=== PATIENT | female | born 1995 | race African-American/Black ===

== ENCOUNTER 2016-07-26 09:00 | Emergency (ER) | payer MEDICAID ==
[~2016-07-26] VITALS: Ht 170.2 cm; Wt 90.0 kg
[~2016-07-26 09:00] MED LIST: DEPO400I IM; OSEL75 PO
[2016-07-26 09:01] VITALS: BP 120/77; PULSE 80; RESP 20; TEMP 99; O2SAT 98
--- NOTE | 2016-07-26 09:22 | PD ---
HPI Chief Complaint: Cold / Flu Symptoms Time Seen by Provider: 09:22 Travel History International Travel<30 days: No Contact w/Intl Traveler<30days: No Traveled to known affect area: No History of Present Illness HPI 20-year-old female presents to the emergency Department with complaint of nasal congestion, cough, sore throat, bilateral ear pain since yesterday. Denies fever, vomiting, abdominal pain. Denies lump in throat, difficulty swallowing, unusual drooling. Reports painful swallowing. Denies chest pain or shortness of breath. Denies body aches or headache. Has been drinking hot tea with minimal relief of symptoms. Has not taken any other medications or tried any other treatments to alleviate her symptoms. No known allergies. Has no other medical complaints. No other modifying factors or associated signs and symptoms. PFSH Past Medical History Autoimmune Disease: No Blood Disorders: No Anxiety: No Depression: No Cancer: No Cardiovascular Problems: Yes Diabetes: Yes (pt states borderline) Diminished Hearing: No Endocrine: Yes Gastrointestinal Disorders: Yes (GALLBLADDER "ISSUES") Genitourinary: No Hypertension: Yes (PI) Immune Disorder: No Implanted Vascular Access Dvce: No Musculoskeletal: No Neurologic: No Psychiatric: No Reproductive: No Respiratory: No Immunizations Current: Yes Pancreatitis: Yes Thyroid Disease: No ?: Not LMP: on depo BC : 3 Para: 2 Miscarriage: 0 : 0 Past Surgical History Cholecystectomy: Yes Other Surgery: No Social History Alcohol Use: No Tobacco Use: No Substance Use: No Allergies-Medications (Allergen,Severity, Reaction): Coded Allergies: No Known Allergies (Verified , 12/18/15) Reported Meds & Prescriptions Reported Meds & Active Scripts Active No Active Prescriptions or Reported Medications Review of Systems Except as stated in HPI: all other systems reviewed are Neg Physical Exam Narrative GENERAL: Well-nourished, well-developed female patient, in no acute distress SKIN: Warm and dry. No rash. HEAD: Atraumatic. Normocephalic. EYES: Pupils equal and round at 3 mm with brisk reaction. No scleral icterus. No injection or drainage. PERRLA. ENT: Mucosa pink and moist. Oropharynx with erythema; without exudate or edema. No uvular edema. No uvular, palatal, or tonsillar deviation. Airway patent. EARS: Bilateral pinnae and external canals appear within normal limits. Bilateral tympanic membranes without erythema, dullness or perforation. NECK: Trachea midline. No lymphadenopathy. CARDIOVASCULAR: Regular rate and rhythm. No murmur appreciated. RESPIRATORY: No accessory muscle use. Clear to auscultation. Breath sounds equal bilaterally. GASTROINTESTINAL: Abdomen soft, non-tender, nondistended. Hepatic and splenic margins not palpable. Bowel sounds are active 4 quadrants. MUSCULOSKELETAL: No obvious deformities. No clubbing. No cyanosis. No edema. NEUROLOGICAL: Awake and alert. Oriented 3. No obvious cranial nerve deficits. Motor grossly within normal limits. Normal speech. Moves all extremities. 5/5 strength to all extremities. PSYCHIATRIC: Appropriate mood and affect; insight and judgment normal. Data Data Last Documented VS Vital Signs Date Time Temp Pulse Resp B/P Pulse Ox O2 Delivery O2 Flow Rate FiO2 07/26/16 09:01 99.0 80 20 120/77 98 Room Air Orders Group A Rapid Strep Screen (07/26/16 09:22) Ibuprofen (Motrin) (07/26/16 09:30) Strep Culture (Group A) (07/26/16 09:24) MDM Medical Decision Making Medical Screen Exam Complete: Yes Emergency Medical Condition: Yes Medical Record Reviewed: Yes Differential Diagnosis Strep pharyngitis, viral pharyngitis, viral illness, less likely peritonsillar abscess Narrative Course 20-year-old female physical examination consistent with viral illness. She complaining of sore throat. Denies limp and throat, difficulty swallowing, and usual drooling. Denies fever, vomiting. Patient is afebrile and nontoxic- appearing. Ibuprofen ordered. Rapid strep ordered. 0953: Rapid strep negative. Discussed viral illness and symptom management. Nasonex nasal spray, ibuprofen, Magic mouthwash prescribed for home. Patient verbalizes understanding and agreement with treatment plan. Patient is medically cleared and stable for discharge. Discussed reasons to return to the emergency department. Instructed patient to follow up with primary care provider. Patient agrees with treatment plan. The patients vital signs are stable and the patient is stable for outpatient follow-up and treatment. Patient discharged home, stable and in no acute distress. Diagnosis Primary Impression: Viral illness Referrals: Primary Care Physician Patient Instructions: Cold Symptoms (ED), General Instructions, Safe Use of Cough and Cold Medicines (ED) Departure Forms: Tests/Procedures, Work Release Enter return to work date: July 28, 2016 Additional Instructions: Antibiotics as prescribed and complete full course Ibuprofen or Tylenol as instructed and as needed for fever/pain Yzhv-cre-cdydanr cough and cold medications as directed and as needed for symptom management Get plenty of sleep/rest Drink plenty of fluids to prevent dehydration; popsicles and Gatorade Use an air humidifier/turn off ceiling fans Follow-up with primary care provider Return immediately to the emergency department with worsening of symptoms Med/Other Pt SpecificInfo: Prescription(s) given Scripts Lonmhhsuzqssypa-Akmxpxhda-Voo-Alum-Simeth Liq (Magic Mouthwash Pediatric/Adult Liq)60 Ml Susp5 Ml SWISH-SWAL Q3HR PRN (SORE THROAT) #60 ML Ref 0 Each 5mL contains: Diphenydramine 4.5mg, Viscous Lidocaine 2% 10mg, Maalox Advanced Regular Strength 2.7ml Prov:Leona Willingham 07/26/16 Mometasone Nasal [place] (Nasonex Nasal [place])50 Mcg/Act Naspr2 [place] EACH NARE DAILY PRN (NASAL CONGESTION) #1 BOTTLE Ref 0 Prov:Leona Willingham 07/26/16 Ibuprofen 800 Mg Qdb571 Mg PO Q6HR PRN (PAIN) #30 TAB Ref 0 Prov:Leona Willingham 07/26/16 Disposition: 01 DISCHARGE HOME Condition: Stable Leona Willingham July 26, 2016 09:22
[2016-07-26] MEDS ORDERED: IBUPROFEN 800 MG TAB PO ONE (09:30)
[2016-07-26] MEDS ORDERED: MAGICPED SWISH-SWAL (09:55)
[2016-07-26] MEDS ORDERED: IBUP800T23 PO (09:55)
[2016-07-26] MEDS ORDERED: MOME17I EACH NARE (09:55)
[2016-07-26 10:30] VITALS: RESP 16
== END 2016-07-26 10:19 | disposition home or self-care (01) ==
LOC: NEPK 09:00
DX: B34.9 Viral infection, unspecified (principal)
CPT/HCPCS: 87081; 87880; 99283

== ENCOUNTER 2016-11-10 21:39 | Emergency (ER) | payer MEDICAID ==
[~2016-11-10 21:39] MED LIST changes: -DEPO400I IM; +IBUP800T23 PO; +MAGICPED SWISH-SWAL; +MOME17I EACH NARE; -OSEL75 PO
[2016-11-10 21:43] VITALS: BP 115/72; PULSE 85; RESP 16; TEMP 98.6; O2SAT 98
--- NOTE | 2016-11-10 22:28 | PD ---
Physical Exam Date Seen by Provider: Nov 10, 2016 Time Seen by Provider: 22:26 Data Data Last Documented VS Vital Signs Date Time Temp Pulse Resp B/P (MAP) Pulse Ox O2 Delivery O2 Flow Rate FiO2 11/10/16 21:43 98.6 85 16 115/72 (86) 98 MDM Supervised Visit with RINA: No Narrative Course 20 YO F with complaint of abdominal pain, diarrhea. Also complains of intermittent chest tightness and SOB since this AM. States similar symptoms before her gallbladder was removed. On Depo, states no period for years. Vitals reviewed. Patient seen in triage, awaiting bed placement. Corry Gar Nov 10, 2016 22:28
--- NOTE | 2016-11-10 23:58 | PD ---
HPI Chief Complaint: Abdominal Pain Time Seen by Provider: 23:58 Travel History International Travel<30 days: No Contact w/Intl Traveler<30days: No (20-year-old female) History of Present Illness HPI Patient is a 20-year-old female presents emergency department for evaluation of abdominal aching diarrhea nausea vomiting. Patient states been going on since the past 24 hours. She states that family member had very similar symptoms in the day. She discussed this with the grandmother thinks might be gastroenteritis. Denies vaginal bleeding vaginal discharge loss of fluid nonbilious nonbloody emesis and no melena nor bright red blood per rectum. No fevers. States symptoms are mild cramping but severe diarrhea. PFSH Past Medical History Autoimmune Disease: No Blood Disorders: No Anxiety: No Depression: No Cancer: No Cardiovascular Problems: Yes Diabetes: Yes (pt states borderline) Diminished Hearing: No Endocrine: Yes Gastrointestinal Disorders: Yes (GALLBLADDER "ISSUES") Genitourinary: No Hypertension: Yes (PIH) Immune Disorder: No Implanted Vascular Access Dvce: No Musculoskeletal: No Neurologic: No Psychiatric: No Reproductive: No Respiratory: No Immunizations Current: Yes Pancreatitis: Yes Thyroid Disease: No Tetanus Vaccination: < 5 Years ?: Not : 3 Para: 2 Miscarriage: 0 : 0 Past Surgical History Cholecystectomy: Yes Other Surgery: No Social History Alcohol Use: No Tobacco Use: No Substance Use: No Allergies-Medications (Allergen,Severity, Reaction): Coded Allergies: No Known Allergies (Verified , 12/18/15) Reported Meds & Prescriptions Reported Meds & Active Scripts Active Zofran Odt (Ondansetron Odt) 4 Mg Tab 4 Mg SL Q6HR PRN Flagyl (Metronidazole) 500 Mg Tab 500 Mg PO BID 7 Days Cipro (Ciprofloxacin HCl) 500 Mg Tab 500 Mg PO BID 7 Days Review of Systems Except as stated in HPI: all other systems reviewed are Neg Physical Exam Narrative GENERAL: Well-developed well-nourished no obvious distress, sitting comfortably studying a textbook. SKIN: Focused skin assessment warm/dry. HEAD: Atraumatic. Normocephalic. EYES: Pupils equal and round. No scleral icterus. No injection or drainage. ENT: No nasal bleeding or discharge. Mucous membranes pink and moist. NECK: Trachea midline. No JVD. CARDIOVASCULAR: Regular rate and rhythm. No murmur appreciated. RESPIRATORY: No accessory muscle use. Clear to auscultation. Breath sounds equal bilaterally. GASTROINTESTINAL: Abdomen soft, non-tender, nondistended. Hepatic and splenic margins not palpable. MUSCULOSKELETAL: No obvious deformities. No clubbing. No cyanosis. No edema. NEUROLOGICAL: Awake and alert. No obvious cranial nerve deficits. Motor grossly within normal limits. Normal speech. PSYCHIATRIC: Appropriate mood and affect; insight and judgment normal. Data Data Last Documented VS Vital Signs Date Time Temp Pulse Resp B/P (MAP) Pulse Ox O2 Delivery O2 Flow Rate FiO2 11/11/16 01:40 11/11/16 00:13 92 18 99 Room Air 11/10/16 21:43 98.6 Orders Orders Electrocardiogram (11/10/16 22:29) Complete Blood Count With Diff (11/11/16 00:00) Comprehensive Metabolic Panel (11/11/16 00:00) Prothrombin Time / Inr (Pt) (11/11/16 00:00) Act Partial Throm Time (Ptt) (11/11/16 00:00) Urinalysis - C+S If Indicated (11/11/16 00:00) Iv Access Insert/Monitor (11/11/16 00:00) Ecg Monitoring (11/11/16 00:00) Oximetry (11/11/16 00:00) Sodium Chlor 0.9% 1000 Ml Inj (Ns 1000 M (11/11/16 00:00) Sodium Chloride 0.9% Flush (Ns Flush) (11/11/16 00:00) Ketorolac Inj (Toradol Inj) (11/11/16 00:00) Ed Urine Pregnancytest Poc (11/11/16 00:00) Urine Culture (11/11/16 00:15) Labs Laboratory Tests Test 11/11/16 00:05 11/11/16 00:15 White Blood Count 10.2 TH/MM3 Red Blood Count 4.83 MIL/MM3 Hemoglobin 13.3 GM/DL Hematocrit 39.9 % Mean Corpuscular Volume 82.6 FL Mean Corpuscular Hemoglobin 27.5 PG Mean Corpuscular Hemoglobin Concent 33.3 % Red Cell Distribution Width 13.3 % Platelet Count 327 TH/MM3 Mean Platelet Volume 9.7 FL Neutrophils (%) (Auto) 59.0 % Lymphocytes (%) (Auto) 30.3 % Monocytes (%) (Auto) 7.6 % Eosinophils (%) (Auto) 2.6 % Basophils (%) (Auto) 0.5 % Neutrophils # (Auto) 6.0 TH/MM3 Lymphocytes # (Auto) 3.1 TH/MM3 Monocytes # (Auto) 0.8 TH/MM3 Eosinophils # (Auto) 0.3 TH/MM3 Basophils # (Auto) 0.0 TH/MM3 CBC Comment DIFF FINAL Differential Comment Prothrombin Time 11.6 SEC Prothromb Time International Ratio 1.0 RATIO Activated Partial Thromboplast Time 29.2 SEC Blood Urea Nitrogen 12 MG/DL Creatinine 0.81 MG/DL Random Glucose 82 MG/DL Total Protein 8.5 GM/DL Albumin 3.8 GM/DL Calcium Level 9.2 MG/DL Alkaline Phosphatase 92 U/L Aspartate Amino Transf (AST/SGOT) 27 U/L Alanine Aminotransferase (ALT/SGPT) 22 U/L Total Bilirubin 0.4 MG/DL Sodium Level 140 MEQ/L Potassium Level 4.0 MEQ/L Chloride Level 107 MEQ/L Carbon Dioxide Level 25.2 MEQ/L Anion Gap 8 MEQ/L Estimat Glomerular Filtration Rate 107 ML/MIN Urine Color YELLOW Urine Turbidity HAZY Urine pH 6.0 Urine Specific Hugo 1.030 Urine Protein 30 mg/dL Urine Glucose (UA) NEG mg/dL Urine Ketones NEG mg/dL Urine Occult Blood NEG Urine Nitrite NEG Urine Bilirubin NEG Urine Urobilinogen LESS THAN 2.0 MG/DL Urine Leukocyte Esterase LARGE Urine RBC 4 /hpf Urine WBC 9 /hpf Urine Squamous Epithelial Cells 6 /hpf Urine Hyaline Casts 2 /lpf Urine Mucus MANY /lpf Microscopic Urinalysis Comment CULTURE INDICATED MDM Medical Decision Making Medical Screen Exam Complete: Yes Emergency Medical Condition: Yes Differential Diagnosis Gastritis, gastroenteritis, acute abdomen unlikely, pancreatitis, cholecystitis , , electrolyte abnormality. Narrative Course Patient roomed emergency department, labs are reassuring except for UA which does show some evidence for urinary tract infection. Patient appears comfortable. Will be placed on empiric antibiotics discussed need for follow- up the primary care physician and discussed return to ED criteria. Stable for discharge. Diagnosis Primary Impression: Gastroenteritis Additional Impression: UTI (urinary tract infection) Departure Forms: Tests/Procedures, Work Release Enter return to work date: Nov 12, 2016 Special Instructions: Please excuse on 11/09 and 11/10 as well. Med/Other Pt SpecificInfo: Prescription(s) given Scripts Ondansetron Odt (Zofran Odt) 4 Mg Tab 4 MG SL Q6HR Y for Nausea/Vomiting, #30 TAB 0 Refills Prov: Farhat Burton MD 11/11/16 Metronidazole (Flagyl) 500 Mg Tab 500 MG PO BID for Infection for 7 Days, TAB 0 Refills Prov: Farhat Burton MD 11/11/16 Ciprofloxacin (Cipro) 500 Mg Tab 500 MG PO BID for Infection for 7 Days, TAB 0 Refills Prov: Farhat Burton MD 11/11/16 Disposition: 01 DISCHARGE HOME Condition: Stable Farhat Burton MD Nov 10, 2016 23:58
[2016-11-11] MEDS ORDERED: SODIUM CHLOR 0.9% 1000 ML INJ 1,000 ML IV SCH
[2016-11-11] MEDS ORDERED: SODIUM CHLORIDE 0.9% FLUSH 10 ML FLUSH IV FLUSH PRN
[2016-11-11] MEDS ORDERED: KETOROLAC TROMETHAMINE 30 MG/ML (IVP) VIAL IVP ONE
[2016-11-11 00:13] VITALS: BP 126/76; PULSE 92; RESP 18; O2SAT 99
[2016-11-11 00:31] LABS: BASOPHIL % 0.5 % (0.0-2.0); EOSINOPHIL # 0.3 TH/MM3 (0-0.4); EOSINOPHIL % 2.6 % (0.0-4.0); HEMATOCRIT 39.9 % (35.0-46.0); HEMO FLAGS DIFF FINAL; LYMPH % 30.3 % (9.0-44.0); LYMPHOCYTE # 3.1 TH/MM3 (1.0-4.8); MEAN CELL VOLUME 82.6 FL (80.0-100.0); MEAN CORPUSCULAR HEMOGLOBIN 27.5 PG (27.0-34.0); MEAN CORPUSCULAR HGB CONC 33.3 % (32.0-36.0); MONO % 7.6 % (0.0-8.0); PLATELET COUNT 327 TH/MM3 (150-450); RED BLOOD COUNT 4.83 MIL/MM3 (4.00-5.30); RED CELL DISTRIBUTION WIDTH 13.3 % (11.6-17.2); WHITE BLOOD COUNT 10.2 TH/MM3 (4.0-11.0)
[2016-11-11 00:37] LABS: BLOOD, URINE NEG (NEG); COMMENT (UR) CULTURE INDICATED; CULTURE IF INDICATED CULTURE INDICATED; GLUCOSE,URINE NEG (NEG); HYALINE CAST, URINE 2 /lpf (RARE); KETONE, URINE NEG (NEG); MUCUS URINE MANY /lpf (OCC); NITRITE,URINE NEG (NEG); SQUAMOUS EPITHELIAL CELL URINE 6 /hpf (0-5); URINE COLOR YELLOW (YELLW/STRAW)
[2016-11-11 00:45] LABS: APTT (PATIENT) 29.2 SEC (24.3-30.1); PROTHROMBIN TIME - PATIENT 11.6 SEC (9.8-11.6)
[2016-11-11 00:51] LABS: ALKALINE PHOSPHATASE 92 U/L (45-117); TOTAL BILIRUBIN ADULT 0.4 MG/DL (0.2-1.0)
[2016-11-11 00:52] LABS: ALT (GPT) 22 U/L (10-53); ANION GAP 8 MEQ/L (5-15); AST (GOT) 27 U/L (15-37); BICARBONATE 25.2 MEQ/L (21.0-32.0); BLOOD UREA NITROGEN 12 MG/DL (7-18); CHLORIDE 107 MEQ/L (98-107); GLOMERULAR FILTRATION RATE 107 ML/MIN (>89); SODIUM (NA) 140 MEQ/L (136-145)
[2016-11-11] MEDS ORDERED: ZOFR4TAB3 SL (00:58)
[2016-11-11] MEDS ORDERED: METR-1 PO (00:58)
[2016-11-11] MEDS ORDERED: CIPR-9 PO (00:58)
--- NOTE | 2016-11-11 19:43 | EKG ---
Date Performed: 11/10/2016 Time Performed: 22:36:05 PTAGE: 20 years EKG: Sinus rhythm WITH SINUS ARRHYTHMIA POSSIBLE RIGHT VENTRICULAR CONDUCTION DELAY BORDERLINE ECG PREVIOUS TRACING : 12/18/2015 04.46 Compared to prior tracing no significant change DOCTOR: Nanci Woodard Interpretating Date/Time 11/11/2016 19:42:06
== END 2016-11-11 01:46 | disposition home or self-care (01) ==
LOC: NEPD 21:39
DX: K52.9 Noninfective gastroenteritis and colitis, unspecified (principal); N39.0 Urinary tract infection, site not specified; R07.9 Chest pain, unspecified
CPT/HCPCS: 80053; 81001; 84703; 85025; 85610; 85730; 87086; 93005; 96361; 96374; 99284; J1885; J7030

== ENCOUNTER 2016-11-16 11:51 | Emergency (ER) | payer MEDICAID ==
[~2016-11-16 11:51] MED LIST changes: +CIPR-9 PO; -IBUP800T23 PO; -MAGICPED SWISH-SWAL; +METR-1 PO; -MOME17I EACH NARE; +ZOFR4TAB3 SL
[2016-11-16 11:54] VITALS: BP 141/83; PULSE 78; RESP 15; TEMP 98.8; O2SAT 98
--- NOTE | 2016-11-16 12:14 | PD ---
HPI . generalized stomach pain Chief Complaint: GI Complaint Time Seen by Provider: 12:12 Travel History International Travel<30 days: No Contact w/Intl Traveler<30days: No Traveled to known affect area: No History of Present Illness HPI 20- year old female complaining of RUQ abdominal pain with nausea, vomiting, and diarrhea. The patient reports that she was seen a few days ago and was given Cipro and Flagyl to treat gastroenteritis and Zofran for her nausea. She reports despite taking all of the medications she has not gotten any better. She reports that she is having RUQ abdominal pain. She also reports feeling weak and dizzy. She states she is unable to keep any liquids down. She reports about two years ago she had a cholecystectomy. She denies any vaginal discharge or any chance of . PFSH Past Medical History Autoimmune Disease: No Blood Disorders: No Anxiety: No Depression: No Cancer: No Cardiovascular Problems: Yes Diabetes: Yes (pt states borderline) Diminished Hearing: No Endocrine: Yes Gastrointestinal Disorders: Yes (GALLBLADDER "ISSUES") Genitourinary: No Hypertension: Yes (PIH) Immune Disorder: No Implanted Vascular Access Dvce: No Musculoskeletal: No Neurologic: No Psychiatric: No Reproductive: No Respiratory: No Immunizations Current: Yes Pancreatitis: Yes Thyroid Disease: No : 3 Para: 2 Miscarriage: 0 : 0 Past Surgical History Cholecystectomy: Yes Other Surgery: No Social History Alcohol Use: No Tobacco Use: No Substance Use: No Allergies-Medications (Allergen,Severity, Reaction): Coded Allergies: No Known Allergies (Verified , 12/18/15) Reported Meds & Prescriptions Reported Meds & Active Scripts Active Zofran Odt (Ondansetron Odt) 4 Mg Tab 4 Mg SL Q6HR PRN Flagyl (Metronidazole) 500 Mg Tab 500 Mg PO BID 7 Days Cipro (Ciprofloxacin HCl) 500 Mg Tab 500 Mg PO BID 7 Days Review of Systems General / Constitutional: No: Fever, Chills, Weight Gain, Weight Loss, Other Eyes: No: Diploplia, Blurred Vision, Photophobia, Drainage, Redness, Foreign Body Sensation, Pain, Tearing, Blind Spots, Visual changes, Blindness, Other HENT: No: Headaches, Vertigo, Lightheadedness, Sore Throat, Rhinitis, Rhinorrhea, Congestion, Nosebleed, Neck Stiffness, Neck Pain, Masses, Gingival Bleeding, Dental Difficulties, Ear Discharge, Earache, Other Cardiovascular: No: Chest Pain or Discomfort, Palpitations, Irregular Rhythm, Tachycardia, Diaphoresis, Syncope, Dyspnea on exertion, Varicosities, Edema, Cyanosis, Varicosities, Phlebitis, Claudication, Other Respiratory: No: Cough, Shortness of Breath, Wheezing, Sneezing, Orthopnea, Hemoptysis, Stridor, Night Sweats, Pleuritic Pain, Other Gastrointestinal: Positive: Nausea, Vomiting, Diarrhea, Abdominal Pain (RUQ), No: Hematemesis, Hematochezia, Constipation, Changes in Bowel Habits, Indigestion, Dysphagia, Loss of Appetite, Other Genitourinary: Positive: Flank Pain (right sided ), No: Urgency, Frequency, Dysuria, Nocturia, Hematuria, Decreased Urinary Output, Oliguria, Hesitancy, Dribbling, Incontinence, Pelvic Pain, Dyspareunia, Discharge, Dysmenorrhea, Menorrhagia, Metorrhagia, Vaginal Bleeding, Other Musculoskeletal: No: Myalgias, Arthralgias, Limited ROM, Weakness, Cramping, Edema, Pain, Atrophy, Other Skin: No Rash, No Itching, No Dryness, No Lumps, No Hives, No Change in Pigmentation, No Change in nails, No Alopecia, No Lesions, No Breast Lumps, No Breast Tenderness, No Breast Swelling, No Other Neurologic: Positive: Weakness, Dizziness, No: Syncope, Focal Abnormalities, Coordination Problem, Tremor, Ataxia, Headache, Change in Mentation, Slurred Speech, Paresthesia, Incontinence, Seizures, Sensory Disturbance, Other Psychiatric: No: Anxiety, Depression, Suicidal Ideations, Disorder of Thought, Mood Disorder, Substance Abuse, Homicidal Ideation, Other Endocrine: No: Heat Intolerance, Cold Intolerance, Polyuria, Polydipsia, Other Hematologic/Lymphatic: No: Easy Bruising, Lymph Node Enlargement, Other Physical Exam Narrative GENERAL: AAO x 3. NAD, comfortable in exam room SKIN: Warm and dry. HEAD: Atraumatic. Normocephalic. EYES: Pupils equal and round. No scleral icterus. No injection or drainage. ENT: No nasal bleeding or discharge. Mucous membranes pink and moist. NECK: Trachea midline. No JVD. CARDIOVASCULAR: Regular rate and rhythm. No S3, S4, or murmurs. RESPIRATORY: No accessory muscle use. Clear to auscultation. Breath sounds equal bilaterally. No rales, rhonchi, or wheezing. GASTROINTESTINAL: Abdomen soft, non-tender, nondistended. No CVA tenderness. no rebound or guarding. negative Stahl's sign and McBurney's point tenderness MUSCULOSKELETAL: Extremities without clubbing, cyanosis, or edema. No obvious deformities. NEUROLOGICAL: Awake and alert. No obvious cranial nerve deficits. Motor grossly within normal limits. Five out of 5 muscle strength in the arms and legs. Normal speech. PSYCHIATRIC: Appropriate mood and affect; insight and judgment normal. Data Data Last Documented VS Vital Signs Date Time Temp Pulse Resp B/P (MAP) Pulse Ox O2 Delivery O2 Flow Rate FiO2 11/16/16 13:18 18 11/16/16 11:54 98.8 78 141/83 (102) 98 Orders Orders Complete Blood Count With Diff (11/16/16 12:20) Basic Metabolic Panel (Bmp) (11/16/16 12:20) Ed Urine Pregnancytest Poc (11/16/16 12:56) Labs Laboratory Tests Test 11/16/16 12:48 White Blood Count 8.3 TH/MM3 Red Blood Count 4.17 MIL/MM3 Hemoglobin 11.2 GM/DL Hematocrit 34.5 % Mean Corpuscular Volume 82.7 FL Mean Corpuscular Hemoglobin 26.9 PG Mean Corpuscular Hemoglobin Concent 32.6 % Red Cell Distribution Width 13.6 % Platelet Count 332 TH/MM3 Mean Platelet Volume 8.8 FL Neutrophils (%) (Auto) 61.2 % Lymphocytes (%) (Auto) 28.8 % Monocytes (%) (Auto) 5.6 % Eosinophils (%) (Auto) 3.7 % Basophils (%) (Auto) 0.7 % Neutrophils # (Auto) 5.1 TH/MM3 Lymphocytes # (Auto) 2.4 TH/MM3 Monocytes # (Auto) 0.5 TH/MM3 Eosinophils # (Auto) 0.3 TH/MM3 Basophils # (Auto) 0.1 TH/MM3 CBC Comment DIFF FINAL Differential Comment Blood Urea Nitrogen 11 MG/DL Creatinine 0.68 MG/DL Random Glucose 82 MG/DL Calcium Level 8.6 MG/DL Sodium Level 141 MEQ/L Potassium Level 4.0 MEQ/L Chloride Level 110 MEQ/L Carbon Dioxide Level 25.6 MEQ/L Anion Gap 5 MEQ/L Estimat Glomerular Filtration Rate 131 ML/MIN MDM Medical Decision Making Medical Screen Exam Complete: Yes Emergency Medical Condition: Yes Medical Record Reviewed: Yes Differential Diagnosis Gastroenteritis, Intractable vomiting, Pancreatitis Narrative Course 20- year old female seen in the ED for abdominal pain, nausea, vomiting, and diarrhea. The patient was seen recently in the ED and was prescribed Cipro and Flagyl. The patient reports that the symptoms have not yet resolved. Examination was unremarkable. Her abdominal exam is benign. I do not believe imaging is indicated and there is no tenderness throughout her entire abdomen. Labs completed were unremarkable. Laboratory Tests Test 11/16/16 12:48 White Blood Count 8.3 TH/MM3 Red Blood Count 4.17 MIL/MM3 Hemoglobin 11.2 GM/DL Hematocrit 34.5 % Mean Corpuscular Volume 82.7 FL Mean Corpuscular Hemoglobin 26.9 PG Mean Corpuscular Hemoglobin Concent 32.6 % Red Cell Distribution Width 13.6 % Platelet Count 332 TH/MM3 Mean Platelet Volume 8.8 FL Neutrophils (%) (Auto) 61.2 % Lymphocytes (%) (Auto) 28.8 % Monocytes (%) (Auto) 5.6 % Eosinophils (%) (Auto) 3.7 % Basophils (%) (Auto) 0.7 % Neutrophils # (Auto) 5.1 TH/MM3 Lymphocytes # (Auto) 2.4 TH/MM3 Monocytes # (Auto) 0.5 TH/MM3 Eosinophils # (Auto) 0.3 TH/MM3 Basophils # (Auto) 0.1 TH/MM3 CBC Comment DIFF FINAL Differential Comment Blood Urea Nitrogen 11 MG/DL Creatinine 0.68 MG/DL Random Glucose 82 MG/DL Calcium Level 8.6 MG/DL Sodium Level 141 MEQ/L Potassium Level 4.0 MEQ/L Chloride Level 110 MEQ/L Carbon Dioxide Level 25.6 MEQ/L Anion Gap 5 MEQ/L Estimat Glomerular Filtration Rate 131 ML/MIN Patient was told to follow up with her primary care provider with any further concerns. The patient's test was negative. The patient is requesting work excuse note for today. I advised her to f/u with PCP and consider outpt GI appt. Diagnosis Primary Impression: Abdominal discomfort Patient Instructions: General Instructions Departure Forms: Tests/Procedures, Work Release Enter return to work date: Nov 17, 2016 Additional Instructions: Please return to emergency department if your symptoms return or worsen. Follow up with your primary care provider. Take medications as prescribed. Med/Other Pt SpecificInfo: No Change to Meds Disposition: 01 DISCHARGE HOME Condition: Stable Aura Ferro Nov 16, 2016 12:14
[2016-11-16 13:02] LABS: AUTOMATED NEUTROPHIL # 5.1 TH/MM3 (1.8-7.7); BASOPHIL # 0.1 TH/MM3 (0-0.2); BASOPHIL % 0.7 % (0.0-2.0); EOSINOPHIL # 0.3 TH/MM3 (0-0.4); EOSINOPHIL % 3.7 % (0.0-4.0); HEMATOCRIT 34.5 % (35.0-46.0); HEMO FLAGS DIFF FINAL; LYMPH % 28.8 % (9.0-44.0); LYMPHOCYTE # 2.4 TH/MM3 (1.0-4.8); MEAN CELL VOLUME 82.7 FL (80.0-100.0); MEAN CORPUSCULAR HEMOGLOBIN 26.9 PG (27.0-34.0); MEAN CORPUSCULAR HGB CONC 32.6 % (32.0-36.0); MONO % 5.6 % (0.0-8.0); NEUT % 61.2 % (16.0-70.0); PLATELET COUNT 332 TH/MM3 (150-450); RED BLOOD COUNT 4.17 MIL/MM3 (4.00-5.30); RED CELL DISTRIBUTION WIDTH 13.6 % (11.6-17.2); WHITE BLOOD COUNT 8.3 TH/MM3 (4.0-11.0)
[2016-11-16 13:26] LABS: BICARBONATE 25.6 MEQ/L (21.0-32.0)
== END 2016-11-16 13:56 | disposition home or self-care (01) ==
LOC: NEPD 11:51
DX: R10.11 Right upper quadrant pain (principal); R53.1 Weakness; R42 Dizziness and giddiness
CPT/HCPCS: 80048; 84703; 85025; 99283

== ENCOUNTER 2017-01-01 20:04 | Emergency (ER) | payer MEDICAID ==
[~2017-01-01] VITALS: Ht 170.2 cm; Wt 88.0 kg
[2017-01-01 20:12] VITALS: BP 132/65; PULSE 109; RESP 18; O2SAT 96
[2017-01-01] MEDS ORDERED: PENI500T PO (20:52)
[2017-01-01] MEDS ORDERED: MAGICADU2 SWISH-SWAL (20:52)
[2017-01-01] MEDS ORDERED: PENICILLIN G PROCAINE INJ 1,200,000 UNITS/2 ML SYR IM ONE (21:00)
[2017-01-01] MEDS ORDERED: DEXAMETHASONE SOD PHOS 20 MG/5 ML VIAL IM ONE (21:00)
--- NOTE | 2017-01-01 21:14 | PD ---
HPI Chief Complaint: ENT Complaint Time Seen by Provider: 20:49 Travel History International Travel<30 days: No Contact w/Intl Traveler<30days: No Traveled to known affect area: No History of Present Illness HPI 21-year-old black female presents emergency Department with a 24-hour history of sore throat and ear pain. She states that she was in her normal state of health yesterday. Today she developed some subjective fever, ear pain, sore throat, and general malaise. She states that she had difficulty swallowing but was able to handle her secretions. No shortness of breath or wheezing. No nausea vomiting. No abdominal pain or diarrhea. No dysuria or frequency. PFSH Past Medical History Autoimmune Disease: No Blood Disorders: No Anxiety: No Depression: No Cancer: No Cardiovascular Problems: Yes Diabetes: Yes (pt states borderline) Diminished Hearing: No Endocrine: Yes Gastrointestinal Disorders: Yes (GALLBLADDER "ISSUES") Genitourinary: No Immune Disorder: No Implanted Vascular Access Dvce: No Musculoskeletal: No Neurologic: No Psychiatric: No Reproductive: No Respiratory: No Immunizations Current: Yes Pancreatitis: Yes Thyroid Disease: No Tetanus Vaccination: < 5 Years Influenza Vaccination: No ?: Not LMP: depo injection : 3 Para: 2 Miscarriage: 0 : 0 Past Surgical History Cholecystectomy: Yes Other Surgery: No Social History Alcohol Use: No Tobacco Use: No Substance Use: No Allergies-Medications (Allergen,Severity, Reaction): Coded Allergies: No Known Allergies (Verified , 12/18/15) Reported Meds & Prescriptions Reported Meds & Active Scripts Active Penicillin V Potassium 500 Mg Tab 500 Mg PO Q12HR 10 Days Magic Mouthwash Adult Liq (Multi-Ingredient Mouthwash/Gargle) 120 Ml Susp 5 Ml SWISH-SWAL ACHS Each 5mL contains: Nystatin 200,000units, Diphenhydramine 4.25mg, Viscous Lidocaine 10mg, Frye syrup 0.8 mL Review of Systems Except as stated in HPI: all other systems reviewed are Neg Physical Exam Narrative GENERAL: Well-developed, well-nourished in no acute distress. Nontoxic appearing. HEAD: Normocephalic, atraumatic. EYES: Pupils equal round and reactive. Extraocular motions intact. No scleral icterus. No injection or drainage. ENT: TMs clear without erythema. The external auditory canals clear. Nose: clear . Posterior pharynx is erythematous and moist. Positive tonsillar edema with white exudate. Tonsils are edematous but are not kissing. There is no swelling of the soft palate or peritonsillar area consistent with a abscess. Uvula midline. Airway patent. Patient handling her secretions well. NECK: Trachea midline.Supple, nontender, moves head freely. No central bony tenderness or spasm. CARDIOVASCULAR: Regular rate and rhythm without murmurs, gallops, or rubs. RESPIRATORY: Clear to auscultation. Breath sounds equal bilaterally. No wheezes , rales, or rhonchi. GASTROINTESTINAL: Abdomen soft, non-tender, nondistended. No hepato-splenomegaly , or palpable masses. No guarding. EXTREMITIES: No clubbing, cyanosis, or edema. No joint tenderness, effusion, or edema noted. BACK: Nontender without deformity or crepitance. No flank tenderness. Data Data Last Documented VS Vital Signs Date Time Temp Pulse Resp B/P (MAP) Pulse Ox O2 Delivery O2 Flow Rate FiO2 01/01/17 20:12 109 18 132/65 (87) 96 Orders Orders Dexamethasone Inj (Decadron Inj) (01/01/17 21:00) Penicillin G Procaine Inj (Wycillin Inj) (01/01/17 21:00) Ed Discharge Order (01/01/17 21:08) MDM Medical Decision Making Medical Screen Exam Complete: Yes Emergency Medical Condition: Yes Medical Record Reviewed: Yes Differential Diagnosis MDM: High Differential diagnoses: Strep throat, viral pharyngitis, mono, peritonsillar abscess, retropharyngeal abscess, Gene's angina Narrative Course Patient's given Decadron 10 mg IM and pen G1 0.2 million units IM. This is acute pharyngitis Diagnosis Primary Impression: Acute bacterial pharyngitis Patient Instructions: General Instructions Additional Instructions: Rest. Force fluids. Saltwater gargles. Tylenol and Advil. Chloraseptic [place] Cepastat lozenge. Pen-Vee K and Magic mouthwash. Follow-up with a primary care doctor 2- 3 days.. Return to the ER if any problems. Med/Other Pt SpecificInfo: Prescription(s) given Scripts Penicillin V Potassium (Penicillin V Potassium) 500 Mg Tab 500 MG PO Q12HR for Infection for 10 Days, TAB 0 Refills Prov: Alysha Valdez MD 01/01/17 Hkvoxife-Yrzzazsvjrbrxre-Awsmghhgc Liq (Magic Mouthwash Adult Liq) 120 Ml Susp 5 ML SWISH-SWAL ACHS for Mouth sores, #120 ML 0 Refills Each 5mL contains: Nystatin 200,000units, Diphenhydramine 4.25mg, Viscous Lidocaine 10mg, Frye syrup 0.8 mL Prov: Alysha Valdez MD 01/01/17 Disposition: 01 DISCHARGE HOME Condition: Stable Wilfredo Connolly Jan 01, 2017 21:14
[2017-01-01 21:25] VITALS: TEMP 100.6
[2017-01-01] MEDS ORDERED: ACETAMINOPHEN 500 MG CPLT PO ONE (21:45)
[2017-01-01] MEDS ORDERED: PENICILLIN G BENZATHINE 1,200,000 UNITS/2 ML SYRINGE IM ONE (21:45)
== END 2017-01-01 22:54 | disposition home or self-care (01) ==
LOC: NEPD 20:04
DX: J02.9 Acute pharyngitis, unspecified (principal)
CPT/HCPCS: 96372; 99284; J0561; J1100

== ENCOUNTER 2017-02-18 20:38 | Emergency (ER) | payer MEDICAID ==
[~2017-02-18 20:38] MED LIST changes: -CIPR-9 PO; +MAGICADU2 SWISH-SWAL; -METR-1 PO; +PENI500T PO; -ZOFR4TAB3 SL
[2017-02-18 20:43] VITALS: BP 113/59; PULSE 85; RESP 16; TEMP 98.6; O2SAT 100
== END 2017-02-18 21:10 | disposition left against medical advice (07) ==
LOC: NED 20:38
DX: Z53.21 Procedure and treatment not carried out due to patient leaving prior to being seen by health care provider (principal)
CPT/HCPCS: 99281

== ENCOUNTER 2017-02-18 21:38 | Emergency (ER) | payer MEDICAID ==
[2017-02-18 21:40] VITALS: BP 128/68; PULSE 88; RESP 18; TEMP 97.9; O2SAT 99
== END 2017-02-18 23:47 | disposition left against medical advice (07) ==
LOC: NED 21:38
DX: Z53.21 Procedure and treatment not carried out due to patient leaving prior to being seen by health care provider (principal)
CPT/HCPCS: 99281

== ENCOUNTER 2017-03-09 18:46 | Emergency (ER) | payer MEDICAID ==
[2017-03-09 18:48] VITALS: BP 122/80; PULSE 61; RESP 16; TEMP 98.6; O2SAT 100
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
[2017-03-09] MEDS ORDERED: AZITHROMYCIN PWD FOR SUSP 1 GM PACKET PO ONE (19:45)
[2017-03-09] MEDS ORDERED: cefTRIAXone 250 MG VIAL IM ONE (19:45)
[2017-03-09 21:22] LABS: BILIRUBIN, URINE NEG (NEG); BLOOD, URINE NEG (NEG); GLUCOSE,URINE NEG (NEG); KETONE, URINE NEG (NEG); MUCUS URINE FEW /lpf (OCC); NITRITE,URINE NEG (NEG); SQUAMOUS EPITHELIAL CELL URINE 1 /hpf (0-5); URINE COLOR YELLOW (YELLW/STRAW); URINE LEUKOCYTE ESTERASE NEG (NEG)
[2017-03-09] MEDS ORDERED: METR0.7528 VAGINAL (21:30)
[2017-03-09 21:34] LABS: BICARBONATE 23.2 MEQ/L (21.0-32.0); CALCIUM 9.2 MG/DL (8.5-10.1); CREATININE 0.62 MG/DL (0.50-1.00)
[2017-03-09 22:41] LABS: AUTOMATED NEUTROPHIL # 9.2 TH/MM3 (1.8-7.7); BASOPHIL # 0.1 TH/MM3 (0-0.2); BASOPHIL % 0.5 % (0.0-2.0); EOSINOPHIL # 0.2 TH/MM3 (0-0.4); EOSINOPHIL % 1.5 % (0.0-4.0); HEMATOCRIT 35.4 % (35.0-46.0); HEMOGLOBIN 11.6 GM/DL (11.6-15.3); LYMPH % 23.5 % (9.0-44.0); LYMPHOCYTE # 3.2 TH/MM3 (1.0-4.8); MEAN CELL VOLUME 81.8 FL (80.0-100.0); MEAN CORPUSCULAR HEMOGLOBIN 26.8 PG (27.0-34.0); MEAN CORPUSCULAR HGB CONC 32.8 % (32.0-36.0); MONO % 5.8 % (0.0-8.0); MONOCYTE # 0.8 TH/MM3 (0-0.9); NEUT % 68.7 % (16.0-70.0); PLATELET COUNT 348 TH/MM3 (150-450); RED BLOOD COUNT 4.33 MIL/MM3 (4.00-5.30); RED CELL DISTRIBUTION WIDTH 13.2 % (11.6-17.2); WHITE BLOOD COUNT 13.4 TH/MM3 (4.0-11.0)
--- NOTE | 2017-03-09 22:52 | RADRPT ---
EXAM DATE/TIME: 03/09/2017 22:06 [place] COMPARISON: US PELVIS (QUEST PREG/ECTOPIC), January 24, 2015, 10:56. INDICATIONS : Bleeding with . LAB(S): Beta-hC MEDICAL HISTORY : . Pancreatitis. Hypertension. Borderline diabetic. SURGICAL HISTORY : Cholecystectomy. ENCOUNTER: Initial ACUITY: 1 day PAIN SCORE: 0/10 LOCATION: Bilateral pelvis MEASUREMENTS: UTERUS: 13.0 x 8.1 x 5.8 cm ENDOMETRIAL STRIPE: >20 mm RIGHT OVARY: 3.5 x 2.6 x 1.8 cm LEFT OVARY: 2.8 x 2.1 x 1.4 cm FREE FLUID: No CROWN RUMP LENGTH: 2.4 cm = 9 WKS 1 DAYS FHR: 176 BPM FINDINGS: Intrauterine with pole measuring 2.4 cm and with a small yolk sac. heart rate of 176 beats per minute is documented with Doppler. Low level echo intensity 2.1 x 1.8 cm in the rig ht ovary probably represents corpus luteum. No evidence of free fluid. CONCLUSION: Viable intrauterine dated at 9 weeks one day. Adam Verdugo MD on March 09, 2017 at 22:48 Board Certified Radiologist. This report was verified electronically.
[2017-03-09 23:30] VITALS: BP_SYST 114; BP_DIAS 61; BP_DIAS 65
== END 2017-03-09 23:31 | disposition home or self-care (01) ==
LOC: NEPD 18:46
DX: O23.591 Infection of other part of genital tract in pregnancy, first trimester (principal); B96.89 Other specified bacterial agents as the cause of diseases classified elsewhere; Z3A.08 8 weeks gestation of pregnancy
CPT/HCPCS: 76700; 80048; 81001; 84702; 85025; 87210; 87491; 87591; 96372; 99285; J0696

== ENCOUNTER 2017-04-21 08:43 | Emergency (ER) | payer MEDICAID ==
[~2017-04-21] VITALS: Ht 170.2 cm; Wt 88.0 kg
[~2017-04-21 08:43] MED LIST changes: +METR0.7528 VAGINAL
[2017-04-21 08:44] VITALS: BP 109/69; PULSE 76; RESP 16; TEMP 98.6; O2SAT 100
--- NOTE | 2017-04-21 09:21 | PD ---
HPI Chief Complaint: Related Problem Time Seen by Provider: 09:20 Travel History International Travel<30 days: No Contact w/Intl Traveler<30days: No Traveled to known affect area: No History of Present Illness HPI 21-year-old female came to the emergency room with history of vaginal bleeding that she noticed this morning. This was bright red blood without any blood clots. No severe cramping is involved. Patient had seen her OB yesterday in the office. There was ultrasound done and she was told everything was okay. Patient did not have bleeding at that time. She is A0. Patient is complaining of dull ache in her abdomen. Vital signs are stable. No history of trauma or vaginal intercourse prior to the event. [facility] Past Medical History Narrative Medical List of her past medical, surgical, social and family history is reviewed from the nursing note. Autoimmune Disease: No Blood Disorders: No Anxiety: No Depression: No Cancer: No Cardiovascular Problems: Yes Diabetes: Yes (pt states borderline) Diminished Hearing: No Endocrine: Yes Gastrointestinal Disorders: Yes (GALLBLADDER "ISSUES") Genitourinary: No Immune Disorder: No Implanted Vascular Access Dvce: No Musculoskeletal: No Neurologic: No Psychiatric: No Reproductive: No Respiratory: No Immunizations Current: Yes Pancreatitis: Yes Thyroid Disease: No ?: : 5 Para: 4 Miscarriage: 0 : 0 Past Surgical History Cholecystectomy: Yes Other Surgery: No Social History Alcohol Use: No Tobacco Use: No Substance Use: No Allergies-Medications (Allergen,Severity, Reaction): Coded Allergies: No Known Allergies (Verified Adverse Reaction, Unknown, 04/21/17) Comments No known drug allergies. Reported Meds & Prescriptions Reported Meds & Active Scripts Active No Active Prescriptions or Reported Medications Narrative Medication List of her home medications reviewed from the nursing note. Review of Systems Except as stated in HPI: all other systems reviewed are Neg Genitourinary: Positive: Vaginal Bleeding Physical Exam Narrative GENERAL: Awake, alert, mild distress SKIN: Focused skin assessment warm/dry. HEAD: Atraumatic. Normocephalic. EYES: Pupils equal and round. No scleral icterus. No injection or drainage. ENT: No nasal bleeding or discharge. Mucous membranes pink and moist. NECK: Trachea midline. No JVD. CARDIOVASCULAR: Regular rate and rhythm. No murmur appreciated. RESPIRATORY: No accessory muscle use. Clear to auscultation. Breath sounds equal bilaterally. GASTROINTESTINAL: Abdomen soft, non-tender, nondistended. Hepatic and splenic margins not palpable. : External inspection was within normal limits. Speculum exam showed dark blood in the vaginal vault. The cervix was identified and was swollen and congested secondary to the . It was hard to tell whether the cervix was open or closed. MUSCULOSKELETAL: No obvious deformities. No clubbing. No cyanosis. No edema. NEUROLOGICAL: Awake and alert. No obvious cranial nerve deficits. Motor grossly within normal limits. Normal speech. PSYCHIATRIC: Appropriate mood and affect; insight and judgment normal. Data Data Last Documented VS Orders Orders Ed Poc Ultrasound (04/21/17 ) Ed Discharge Order (04/21/17 11:11) [facility] Medical Decision Making Medical Screen Exam Complete: Yes Emergency Medical Condition: Yes Medical Record Reviewed: Yes Differential Diagnosis Threatened , inevitable Narrative Course 11:08 AM I did a bedside ultrasound which showed that the fetus was moving and had good heartbeat. Please refer to my procedure note. I discussed initially with Dr. Giles from [facility] who is covering for patient's OB Dr. Hull. His recommendation was to have the OB hospitalist in [place] come and see the patient since he does not have privileges in [place]. I discussed with Dr. Don from OB hospitalists and he came to see the patient. He did a speculum exam and his conclusion was that the cervix was closed. As per him patient could go home with instructions and precautions. This will be given to the patient. I will discharge the patient home. Her previous blood test result shows that her blood type is B+. Procedures EKG Prior to Arrival: No Diagnosis Primary Impression: Second trimester Additional Impression: Vaginal bleeding Referrals: Primary Care Physician 3 days Departure Forms: Tests/Procedures, Work Release Enter return to work date: Apr 27, 2017 Additional Instructions: Get bedrest and drink lots of fluid. No vaginal intercourse, douching or tampons or anything in the vagina. Return to the ER if condition worsens or any other new concerns. Scripts No Active Prescriptions or Reported Meds Condition: Aiden Santacruz MD Apr 21, 2017 09:21
[2017-04-21 11:12] VITALS: BP 104/55
--- NOTE | 2017-04-21 11:13 | PD.CONS ---
HPI Chief Complaint vaginal bleeding Date Seen: Apr 21, 2017 Time Seen: 10:59 Travel History International Travel<30 Days: No Contact w/Intl Traveler<30Days: No Known Affected Area: No History of Present Illness HPI 21 y/o at 15 weeks presented to ED due to vaginal bleeding. She states that she had some bright red blood that started this morning, she states soaked several towels. She is 15 weeks . No problems with this . Denies any abdominal pain, loss of fluids, contractions. Ultrasound was done in ED, which showed active heartbeat and movement. Denies any history of blood disorders, bleeding in previous pregnancies. She stated she had an ultrasound yesterday in her OB's office, which was wnl. Weeks Gestation: 15 Para: 4 : 5 History Past Medical History Medical History: Denies Significant Hx Obstetric History Obstetric History 4 SVDs Past Surgical History Narrative Surgical Cholecystectomy Family History Family History: Negative Social History Alcohol Use: No Tobacco Use: No Substance Abuse: No Allergies-Medications (Allergen,Severity, Reaction): Coded Allergies: No Known Allergies (Verified Adverse Reaction, Unknown, 04/21/17) Home Meds Discontinued Scripts Metronidazole Vaginal Gel (Metrogel Vaginal Gel) 0.75 % Gel, 1 APPL VAGINAL HS for Infection for 5 Days, #1 TUBE 0 Refills Prov:Dariel Cruz MD 03/09/17 Penicillin V Potassium (Penicillin V Potassium) 500 Mg Tab, 500 MG PO Q12HR for Infection for 10 Days, TAB 0 Refills Prov:Alysha Valdez MD 01/01/17 Exlaejtb-Dbqcxgcoubangaq-Lvflcqrse Liq (Magic Mouthwash Adult Liq) 120 Ml Susp, 5 ML SWISH-SWAL ACHS for Mouth sores, #120 ML 0 Refills Each 5mL contains: Nystatin 200,000units, Diphenhydramine 4.25mg, Viscous Lidocaine 10mg, Frye syrup 0.8 mL Prov:Alysha Valdez MD 01/01/17 Review of Systems General / Constitutional: Weight Gain, No: Fever, Weight Loss, Chills, Other Eyes: No: Diploplia, Blurred Vision, Visual changes, Pain, Photophobia HENT: No: Headaches, Vertigo, Lightheadedness Cardiovascular: No: Irregular Rhythm, Chest Pain or Discomfort, Palpitations, Tachycardia, Syncope, Varicosities, Edema, Cyanosis Respiratory: No: Cough, Short of Breath, Other Gastrointestinal: No: Nausea, Vomiting, Diarrhea Genitourinary: Vaginal Bleeding, No: Urgency, Frequency, Dysuria, Decreased Urinary Output, Oliguria, Incontinence, Pelvic Pain, Discharge Musculoskeletal: No: Limited ROM, Weakness, Cramping, Edema, Pain Skin: No Rash, No Itching, No Dryness, No Lumps, No Change in Pigmentation, No Change in Nails, No Alopecia, No Lesions Neurologic: No: Weakness, Dizziness, Syncope, Focal Abnormalities, Coordination Problem, Headache, Slurred Speech, Seizures Psychiatric: No: Depression, Suicidal Ideations, Homicidal Ideation Endocrine: No: Heat Intolerance, Cold Intolerance, Polydipsia, Polyuria, Other Physical Exam Vital Signs Date Time Temp Pulse Resp B/P (MAP) Pulse Ox O2 Delivery O2 Flow Rate FiO2 04/21/17 08:44 98.6 76 16 109/69 (82) 100 Room Air Narrative GENERAL: Well-nourished, well-developed patient. SKIN: Warm and dry. HEAD: Normocephalic and atraumatic. EYES: No scleral icterus. No injection or drainage. ENT: No nasal drainage noted. Mucous membranes pink. Airway patent. NECK: Supple, trachea midline. No JVD. CARDIOVASCULAR: Regular rate and rhythm without murmurs, gallops, or rubs. RESPIRATORY: Breath sounds equal bilaterally. No accessory muscle use. ABDOMEN/GI: Abdomen soft, non-tender, bowel sounds present, no rebound, no guarding GENITOURINARY: Speculum exam performed. Dark blood in vaginal vault. No active bleeding noted. No adnexal/cervical tenderness Cervix: thick, posterior Dilatation: 0 Effacement: 0 EXTREMITIES: No cyanosis or edema. BACK: Nontender without obvious deformity. No CVA tenderness. NEUROLOGICAL: Awake and alert. Motor and sensory grossly within normal limits. Five out of 5 muscle strength in all muscle groups. Normal speech. Data Data Vital Signs Reviewed: Yes Orders Orders Ed Poc Ultrasound (04/21/17 ) [facility] Medical Record Reviewed: Yes Interpretation(s) 21 y/o at 15 weeks presents with vaginal bleeding Bedside US shows active heartbeat and active baby Vaginal exam shows some blood in vaginal vault, no sign of active bleeding. Closed cervix Dx: Threatened in 2nd trimester with vaginal bleeding -D/c home -Bed rest for next week, provide note for work -F/u with OB this week and ultrasound -Return to ED if continued/worsening bleeding, abdominal pain. sdw Dr. Don Diagnosis: Threatened with vaginal bleeding Disposition: DISCHARGE HOME Condition: Stable Scripts No Active Prescriptions or Reported Meds Augusto Kessler MD Apr 21, 2017 11:13
== END 2017-04-21 11:20 | disposition home or self-care (01) ==
LOC: NEPE 08:43
DX: O20.0 Threatened abortion (principal); Z3A.15 15 weeks gestation of pregnancy
CPT/HCPCS: 99282